=== PATIENT | male | born 1950 | race Caucasian/White ===

== ENCOUNTER 2016-12-26 09:48 | Emergency (ER) | payer MEDICARE, OTHER ==
[~2016-12-26] VITALS: Ht 152.4 cm; Wt 56.0 kg
[~2016-12-26 09:48] MED LIST: BACTDS PO; CEPH-443 PO; CETI10CA PO; CLOT30CR24 TOP; FLUC150T17 PO; HC30CR25 TOP; HYDR-3498 PO; IBUP-1542 PO
[2016-12-26 09:51] VITALS: Ht 152.4 cm; Wt 56.0 kg
[2016-12-26] MEDS ORDERED: IBUP-1542 PO (10:27)
[2016-12-26] MEDS ORDERED: SULF1TAB31 PO (10:27)
[2016-12-26] MEDS ORDERED: CEPH-443 PO (10:27)
--- NOTE | 2016-12-26 20:37 | ERD ---
ER Documentation Chief Complaint Date/Time DATE: 12/26/16 TIME: 20:31 Chief Complaint Complains of left toe pain x 2 days HPI 66-year-old male accompanied by is complaining of pain in the left second toe 2 days. Patient has history of diabetes, taking glipizide and metformin, but does not check his blood sugar daily. Patient denies injury to his toes. Denies fever or chills. ROS All systems reviewed and are negative except as per history of present illness. Medications Home Meds Active Scripts Cephalexin* (Keflex*) 500 Mg Capsule, 500 MG PO QID for 7 Days, CAP Prov:RAY RAMIREZ NP 12/26/16 Ibuprofen* (Motrin*) 600 Mg Tab, 600 MG PO Q6H Y for PAIN AND OR ELEVATED TEMP, #30 TAB Prov:RAY RAMIREZ NP 12/26/16 Sulfamethoxazole/Trimethoprim* (Bactrim Ds* Tablet) 1 Each Tablet, 1 TAB PO BID , #14 TAB Prov:RAY RAMIREZ NP 12/26/16 Hydrocortisone* Topical (Hydrocortisone* Topical) 2.5%-28.3 Gm Cream..g., 1 APPLIC TOP BID for 7 Days, #1 TUB Prov:SAVANNA RIVERO MD 02/15/16 Clotrimazole* (Clotrimazole* AF) 1% - 30 Gm Cream.gm., 1 APPLIC TOP BID for 14 Days, TUB Prov:SAVANNA RIVERO MD 02/15/16 Fluconazole* (Diflucan*) 150 Mg Tablet, 150 MG PO ONCE, #1 TAB Prov:SAVANNA RIVERO MD 02/15/16 Cetirizine Hcl* (Zyrtec*) 10 Mg Capsule, 10 MG PO DAILY, #15 TAB.CHEW Prov:SAVANNA RIVERO MD 02/15/16 Cephalexin* (Keflex*) 500 Mg Capsule, 500 MG PO QID for 10 Days, CAP Prov:AUDIE FOX DO 02/13/15 Sulfamethoxazole-Trimethoprim* (Bactrim* DS) 800-160 Mg Tab, 1 TAB PO BID for 10 Days, TAB Prov:AUDIE FOX DO 02/13/15 Ibuprofen* (Motrin*) 600 Mg Tab, 600 MG PO Q8, #20 Prov:AUDIE FOX DO 02/13/15 Hydrocodone Bit-Acetaminophen* ([place]*) 5-325 Mg Tab, 1 TAB PO Q6 Y for PAIN, # 7 TAB Prov:AUDIE FOX DO 02/13/15 Allergies Allergies: Coded Allergies: No Known Allergy (Unverified , 12/26/16) PMhx/Soc Medical and Surgical Hx: pt denies Surgical Hx Hx Miscellaneous Medical Probl: Yes (diabetes mellitus) Hx Alcohol Use: No Hx Substance Use: No Hx Tobacco Use: No Smoking Status: Never smoker Physical Exam Vitals Vital Signs Date Time Temp Pulse Resp B/P Pulse Ox O2 Delivery O2 Flow Rate FiO2 12/26/16 09:51 97.0 76 20 154/67 98 Physical Exam General: Well-developed, well-nourished, conscious and coherent, in no distress Skin: Warm and dry without rash, good texture and turgor Head: Normocephalic without evidence of trauma Eyes: Sclera and conjunctivae normal; pupils equal, round, and reactive to light; extraocular movements are intact Chest: Normal AP diameter. Good expansion without retractions. Nontender. Lungs are clear to auscultate bilaterally with good tidal volume Heart: Regular rate and rhythm. No murmur, rub, or gallops heard Extremities: Ulcer noted on the distal end of the left second toe, with entire left second toe erythematous and swollen, tender to palpation. Full range of motion. Good strength bilaterally. No clubbing, cyanosis, or edema. Peripheral pulses are intact. Sensation intact Neuro: Alert and oriented 4, GCS 15. Cranial nerves grossly intact. Motor and sensory exams nonfocal. Moves all extremities. Speech clear. Gait normal Procedures/MDM Well-appearing 66-year-old male present ED with diabetic foot ulcer 2 days. He appeared to have associated cellulitis. Low suspicion for osteomyelitis at this time. No sign of necrotizing fasciitis. Patient appears well, stable for discharge and outpatient management. Medical decision making shared with patient and family. Education provided to patient and family. Patient and family expressed understanding of the plan. Medications on discharge: Bactrim DS, Keflex, ibuprofen. Follow-up: Return to eating 2 days for recheck, follow-up with PCP for podiatry referral. [facility] referral also provided. Disclaimer: Inadvertent spelling and grammatical errors are likely due to EHR/ dictation software use and do not reflect on the overall quality of patient care. Also, please note that the electronic time recorded on this note does not necessarily reflect the actual time of the patient encounter. Departure Diagnosis: Primary Impression: Diabetic ulcer of toe Additional Impression: Cellulitis Condition: Stable Patient Instructions: Diabetic Foot Ulcers Referrals: [facility] () Usted se rasmussen hecho un examen mdico de control que le indica que no est en ace condicin que requiera tratamiento urgente en el Departamento de Emergencia. Un estudio ms profundo y el tratamiento de mooney condicin pueden esperar sin ningn riesgo hasta que usted sea atendida/o en el consultorio de mooney mdico o ace cl dayna. Es responsabilidad suya arreglar ace xi para el seguimiento del mattie. MANEJO DE CONDICIONES NO URGENTES EN EL FUTURO 1) Si usted tiene un mdico de atencin primaria: Usted debera llamar a mooney mdico de atencin primaria antes de venir al departamento de emergencia. Despus de las horas de consultorio, mooney doctor o mooney asociado/a est disponible por telfono. El mdico o enfermero de ramiro en el servicio telefnico puede asesorarle por christiano medio para atender el problema, o mattie contrario se puede programar ace xi. 2) Si usted no tiene un mdico de atencin primaria: Llame al mdico o clnica de referencia que aparece abajo juliet las horas de consultorio para hacer ace xi para que le vean. CLINICAS: [facility] [phone] [facility] [phone] [facility] [place] [phone] [address] [facility] [phone] [facility]. [facility] [phone] [address] [facility] [phone] [address] Additional Instructions: Specialist:Usted tiene ace condicin mdica que requiere que kelsie a un especialista dentro de los prximos 1-2 kong.POR FAVOR,CON MOONEY SEGUIMIENTO DE PRIMARIA PHSICIAN refferal. SI USTED NO TIENE UN MDICO GENERAL Y / O USTED NO PUEDE PAGAR tony a un mdico,los siguientes watson RECURSOS sido suministrado a usted. ES MOONEY RESPONSABILIDAD PARA SER VISTOS POR EL ESPECIALISTA: Follow up with label maker (foot doctor). See [facility] or ask you primary provider for a referral. RAY RAMIREZ NP Dec 26, 2016 20:36
== END 2016-12-26 10:36 | disposition home or self-care (01) ==
LOC: FTE 09:48
DX: E11.621 Type 2 diabetes mellitus with foot ulcer (principal); L03.032 Cellulitis of left toe; L97.529 Non-pressure chronic ulcer of other part of left foot with unspecified severity; Z79.84 Long term (current) use of oral hypoglycemic drugs
CPT/HCPCS: 99284

== ENCOUNTER 2018-08-05 10:13 | Emergency (ER) | payer OTHER ==
[~2018-08-05] VITALS: Ht 175.3 cm; Wt 52.9 kg
[~2018-08-05 10:13] MED LIST changes: +FLUC150T PO; -FLUC150T17 PO; +HYDR-4011 PO; +PENI500T PO; +SULF1TAB31 PO
[2018-08-05 10:26] VITALS: BP 172/73; PULSE 77; RESP 18; Ht 175.3 cm; Wt 52.9 kg
[2018-08-05] MEDS ORDERED: CARB-155 LEFT EAR (13:09)
--- NOTE | 2018-08-05 13:11 | ERD ---
ER Documentation Chief Complaint Chief Complaint left ear pain with difficulty hearing x 2 weeks HPI 67-year-old male who presents to the emergency room with difficulty hearing out of the ear for 2 weeks. He denies any fevers or chills, no pain no fall no trauma. No slurred speech. He is otherwise at his neurologic baseline. ROS All systems reviewed and are negative except as per history of present illness. Medications Home Meds Active Scripts Carbamide Peroxide* (Debrox*) 6.5% -15 Ml Drops, 10 DROP LEFT EAR BID PRN for cerumen impaction, #1 EA Prov:DAY BUTTS MD 08/05/18 Penicillin V Potassium* (Penicillin V K*) 500 Mg Tab, 500 MG PO QID for 7 Days, TAB Prov:DONA KELLY PA-C 01/28/18 Ibuprofen* (Motrin*) 600 Mg Tab, 600 MG PO Q6, #30 TAB Prov:DONA KELLY PA-C 01/28/18 Hydrocodone/Acetaminophen ([place] 5-325 Tablet) 1 Each Tablet, 1 TAB PO Q6H PRN for PAIN, #12 TAB Prov:DONA KELLY PA-C 01/28/18 Cephalexin* (Keflex*) 500 Mg Capsule, 500 MG PO QID for 7 Days, CAP Prov:RAY RAMIREZ NP 12/26/16 Ibuprofen* (Motrin*) 600 Mg Tab, 600 MG PO Q6H PRN for PAIN AND OR ELEVATED TEMP, #30 TAB Prov:RAY RAMIREZ NP 12/26/16 Sulfamethoxazole/Trimethoprim* (Bactrim Ds* Tablet) 1 Each Tablet, 1 TAB PO BID, #14 TAB Prov:RAY RAMIREZ NP 12/26/16 Hydrocortisone* Topical (Hydrocortisone* Topical) 2.5%-28.3 Gm Cream..g., 1 APPLIC TOP BID for 7 Days, #1 TUB Prov:SAVANNA RIVERO MD 02/15/16 Clotrimazole* (Clotrimazole* AF) 1% - 30 Gm Cream.gm., 1 APPLIC TOP BID for 14 Days, TUB Prov:SAVANNA RIVERO MD 02/15/16 Fluconazole* (Diflucan*) 150 Mg Tablet, 150 MG PO ONCE, #1 TAB Prov:SAVANNA RIVERO MD 02/15/16 Cetirizine Hcl* (Zyrtec*) 10 Mg Capsule, 10 MG PO DAILY, #15 TAB.CHEW Prov:SAVANNA RIVERO MD 02/15/16 Cephalexin* (Keflex*) 500 Mg Capsule, 500 MG PO QID for 10 Days, CAP Prov:AUDIE FOX 02/13/15 Sulfamethoxazole-Trimethoprim* (Bactrim* DS) 800-160 Mg Tab, 1 TAB PO BID for 10 Days, TAB Prov:RUDDY,AUDIE DO 02/13/15 Ibuprofen* (Motrin*) 600 Mg Tab, 600 MG PO Q8, #20 Prov:AUDIE FOX 02/13/15 Hydrocodone Bit-Acetaminophen* ([place]*) 5-325 Mg Tab, 1 TAB PO Q6 PRN for PAIN, #7 TAB Prov:AUDIE FOX 02/13/15 Allergies Allergies: Coded Allergies: No Known Allergy (Unverified , 12/26/16) PMhx/Soc History of Surgery: No Anesthesia Reaction: No Hx Neurological Disorder: No Hx Respiratory Disorders: No Hx Cardiac Disorders: No Hx Psychiatric Problems: No Hx Miscellaneous Medical Probl: Yes (diabetes mellitus) Hx Alcohol Use: No Hx Substance Use: No Hx Tobacco Use: No Smoking Status: Never smoker FmHx Family History: No diabetes Physical Exam Vitals Vital Signs Date Temp Pulse Resp B/P (MAP) Pulse Ox O2 O2 Flow FiO2 Time Delivery Rate 08/05/18 97.8 77 18 172/73 96 10:26 (106) Physical Exam General: Well developed, well nourished, no acute distress Head: Normocephalic, atraumatic. Eyes: EOM intact ENT: the patient has a small cyst to the superior aspect of the pinna without fluctuance induration or erythema. The patient's ear canal is obstructed by cerumen. No evidence of infection or drainage or discharge. Tympanic membranes difficult to visualize. Neck: Full ROM Respiratory: No respiratory distress Cardiovascular: Well perfused distally Abdominal: Nondistended : Deferred MSK: No edema, no unilateral swelling, 5/5 strength Neurologic: Alert and oriented, moving all extremities, normal speech, steady gait Skin: No rash Psych: Normal mood Procedures/MDM Clinical exam consistent with uncomplicated cerumen impaction. Topical Debrox would be reasonable on an outpatient basis. No indication for antibiotics. Patient can be safely discharged home with routine management of cerumen impaction. The patient does not have an identifiable emergent medical condition that warrants inpatient hospitalization at this time. The patient is deemed safe for discharge with outpatient follow-up. We discussed follow up with the patient's primary care doctor within 24 to 48 hours as needed. We also discussed return to the emergency room for worsening symptoms or worsening condition. Outpatient referral: None required Discharge Medications: Debrox Departure Diagnosis: Primary Impression: Impacted cerumen of left ear Condition: Stable Patient Instructions: Cerumen Impaction, Home Care Referrals: [facility] Usted se rasmussen hecho un examen mdico de control que le indica que no est en ace condicin que requiera tratamiento urgente en el Departamento de Emergencia. Un estudio ms profundo y el tratamiento de larsen condicin pueden esperar sin ningn riesgo hasta que usted sea atendida/o en el consultorio de larsen mdico o ace clnica. Es responsabilidad suya arreglar ace john para el seguimiento del mattie. MANEJO DE CONDICIONES NO URGENTES EN EL FUTURO 1) Si usted tiene un mdico de atencin primaria: Usted debera llamar a larsen mdico de atencin primaria antes de venir al departamento de emergencia. Despus de las horas de consultorio, larsen doctor o larsen asociado/a est disponible por telfono. El mdico o enfermero de ramiro en el servicio telefnico puede asesorarle por christiano medio para atender el problema, o mattie contrario se puede programar ace john. 2) Si usted no tiene un mdico de atencin primaria: Llame al mdico o clnica de referencia que aparece abajo juliet las horas de consultorio para hacer ace john para que le vean. CLINICAS: [facility] [phone] [facility] [phone] [facility] [phone] [address] [place] [id number] [phone] [place] [phone] [place] [id number] [phone] [facility]. [facility] () Usted se rasmussen hecho un examen mdico de control que le indica que no est en ace condicin que requiera tratamiento urgente en el Departamento de Emergencia. Un estudio ms profundo y el tratamiento de larsen condicin pueden esperar sin ningn riesgo hasta que usted sea atendida/o en el consultorio de larsen mdico o ace clnica. Es responsabilidad suya arreglar ace john para el seguimiento del mattie. MANEJO DE CONDICIONES NO URGENTES EN EL FUTURO 1) Si usted tiene un mdico de atencin primaria: Usted debera llamar a larsen mdico de atencin primaria antes de venir al departamento de emergencia. Despus de las horas de consultorio, larsen doctor o larsen asociado/a est disponible por telfono. El mdico o enfermero de ramiro en el servicio telefnico puede asesorarle por christiano medio para atender el problema, o mattie contrario se puede programar ace john. 2) Si usted no tiene un mdico de atencin primaria: Llame al mdico o condado institucions de referencia que aparece abajo juliet las horas de consultorio para hacer ace john para que le vean. SI USTED NO PUEDE PAGAR PARA BEATRICE UN MEDICO puede ir a: [facility] [id number] [place] [address] [facility] [address] [place] [address] [facility] [address] [place] [address] [facility] [address] [place], [place] [id number] Additional Instructions: Llame al doctor nombrado tara (Referral Sources) MAANA y isidro ace JOHN PARA DENTRO DE ACE SEMANA. Dgale a la secretaria que nosotros le instruimos hacer esta john.Avise o llame si larsen condicin se empeora antes de la john. DAY BUTTS MD Aug 05, 2018 13:11
== END 2018-08-05 13:25 | disposition home or self-care (01) ==
LOC: E/R 10:13
DX: H61.22 Impacted cerumen, left ear (principal); E11.9 Type 2 diabetes mellitus without complications
CPT/HCPCS: 99282